=== PATIENT | female | born 1995 | race Caucasian/White ===

== ENCOUNTER 2017-05-28 20:43 | Emergency (ER) | payer OTHER, MEDICARE ==
[~2017-05-28] VITALS: Ht 160 cm; Wt 61.7 kg
[2017-05-28] MEDS ORDERED: ONDANSETRON HCL 4MG/2ML VIAL IV STA (21:50)
[2017-05-28] MEDS ORDERED: MORPHINE SULFATE 4 MG/ML CPJ (NOT FOR IM USE) IV STA (21:50)
[2017-05-28] MEDS ORDERED: HYDROCODONE/ACETAMINOPHEN 5/325MG TABLET PO ONE (23:15)
[2017-05-28] MEDS ORDERED: ONDANSETRON 4MG ODT PO ONE (23:15)
[2017-05-29 01:00] VITALS: BP 110/74
== END 2017-05-29 01:10 | disposition home or self-care (01) ==
LOC: ER 21:01
DX: S80.02XA Contusion of left knee, initial encounter (principal); I10 Essential (primary) hypertension; W01.0XXA Fall on same level from slipping, tripping and stumbling without subsequent striking against object, initial encounter; Y93.66 Activity, soccer; Y92.322 Soccer field as the place of occurrence of the external cause
CPT/HCPCS: 73562; 81025; 99284; Q0162; Z7610; J2270; J2405